=== PATIENT | male | born 1985 | race Caucasian/White ===

== ENCOUNTER 2018-04-07 10:26 | Emergency (ER) | payer MEDICAID ==
[~2018-04-07] VITALS: Ht 165.1 cm; Wt 62.1 kg
[2018-04-07 10:37] VITALS: Ht 165.1 cm; Wt 62.1 kg
[2018-04-07 11:55] LABS: BASOPHIL % 0.3 % (0-2); PLATELET COUNT 296 x10^3mcL (130-400); RED CELL DISTRIBUTION WIDTH 12.8 % (11.5-14.5)
[2018-04-07 12:30] LABS: UA SPECIFIC GRAVITY >=1.030 (1.005-1.035); microscopic required? YES; urine erythrocyte 1+ (NEGATIVE)
[2018-04-07 12:30] LABS: ALKALINE PHOSPHATASE 93 U/L (46-116); ALT/SGPT 42 U/L (16-63); AMYLASE 53 U/L (25-115); AST/SGOT 26 U/L (15-37); BILIRUBIN TOTAL 0.75 mg/dL (0.20-1.00); CARBON DIOXIDE 25.5 mmol/L (21-32); CHLORIDE SERUM 106 mmol/L (98-107); CREATININE SERUM 0.7 mg/dL (0.7-1.3); GFR1 > 60 mL/min; GLUCOSE SERUM 92 mg/dL (74-106); LIPASE 132 IU/L (73-393); POTASSIUM SERUM 4.1 mmol/L (3.5-5.1); SODIUM SERUM 143 mmol/L (136-145)
[2018-04-07 12:33] LABS: TOTAL PROTEIN, SERUM 8.7 g/dL (6.4-8.2)
[2018-04-07 12:45] VITALS: BP 124/72
== END 2018-04-07 12:45 | disposition home or self-care (01) ==
LOC: ED 10:26
PROVIDERS: Specialist
DX: N23 Unspecified renal colic (principal)
CPT/HCPCS: J1885; J2765; J7030

== ENCOUNTER 2018-12-14 15:28 | Emergency (ER) | payer MEDICAID ==
[2018-12-14 15:57] VITALS: Ht 165.1 cm
[2018-12-14 17:54] VITALS: BP 108/74
== END 2018-12-14 17:54 | disposition home or self-care (01) ==
LOC: ED 15:28
DX: R05 Cough (principal); R50.9 Fever, unspecified; R09.81 Nasal congestion; R07.9 Chest pain, unspecified